=== PATIENT | male | born 1985 | race Two or more races ===

== ENCOUNTER 2025-03-28 12:46 | Emergency (ER) | payer BC, SELFPAY ==
[2025-03-28 13:24] VITALS: BP 146/88; PULSE 78; RESP 18; TEMP 36.6; O2SAT 97; BMI 34.9
--- NOTE | 2025-03-28 13:36 | EDRME_ITS ---
Rapid Medical Screening Exam E Arrival date/time: 03/28/25 12:46 This is a 39-year-old female that comes in with complaints of shortness of breath. Patient states that a couple days ago this started. Patient states that his left arm also started feeling weird per patient. 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 Patient currently on antibiotics for his vertigo and also on allergy medication. Patient states that his dizziness has been worse recently. Patient denies history of anxiety I have greeted and performed a focused initial assessment of this patient. Initial appropriate labs ordered at this time. A comprehensive ED assessment and evaluation of the patient and analysis of all test and completion of medical decision making process will be conducted by additional ED provider. Chief Complaint: Shortness of Breath/Dyspnea Time Seen by Provider: 03/28/25 13:13 Vital signs: Vital Signs Temperature 97.8 F 03/28/25 13:24 Pulse Rate 78 03/28/25 13:24 Respiratory Rate 18 03/28/25 13:24 Blood Pressure 146/88 H 03/28/25 13:24 Pulse Oximetry (%) 97 03/28/25 13:24 Oxygen Delivery Method Room Air 03/28/25 13:24
--- NOTE | 2025-03-28 13:38 | XR_ITS ---
Examination: PA lateral chest 2 views TECHNIQUE: Upright PA lateral chest 2 views Exam date and time: March 28, 2025 1450 hours INDICATIONS: Chest pain radiating to left arm beginning 2 days ago. FINDINGS: Normal heart size Lungs are clear. The osseous structures are intact IMPRESSION: No active disease
--- NOTE | 2025-03-28 13:39 | EKG_ITS ---
[facility] Test Date: 2025-03-28 Pat Name: HARDEEP MARCUS Department: Room: - Gender: Male Finish [employer]: : 1985 Requested By: Mindi Brewer Order Number: [id number] Reading MD: Mindi Brewer Measurements Intervals [place] Rate: 58 P: 21 ME: 132 QRS: -4 QRSD: 104 T: 11 QT: 374 QTc: 370 Interpretive Statements SINUS BRADYCARDIA Compared to ECG 07/05/2022 17:02:47 Sinus rhythm no longer present /store/S0/[id number].pdf
[2025-03-28 14:12] LABS: Basophils % (Auto) 1 % (0-2.5); Eosinophils # (Auto) 0.2 Thou/mm3 (0.0-0.5); Eosinophils % (Auto) 3 % (0-10); Hematocrit 42.5 % (41.0-53.0); Hemoglobin 15.2 g/dL (13.5-16.0); Immature Granulocytes % (Auto) 0 % (0-0); Immature Granulocytes Auto 0.03 Thou/mm3 (0.00-0.00); Lymphocytes % (Auto) 40 % (10-50); Mean Corpuscular HGB Conc 35.8 g/dl (31.0-37.0); Mean Corpuscular Hemoglobin 28.3 pg (25.0-35.0); Mean Corpuscular Volume 79 fL (80-100); Monocytes # (Auto) 0.4 Thou/mm3 (0.0-0.8); Monocytes % (Auto) 5 % (0-12); Neutrophils # (Auto) 3.8 Thou/mm3 (1.8-7.7); Neutrophils % (Auto) 51 % (37-80); Nucleated Red Blood Cell % 0 /100 WBC (0); Platelet Count 242 Thou/mm3 (140-440); RDW Standard Deviation 36.6 fL (35.1-43.9); Red Blood Count 5.37 Miln/mm3 (4.50-5.90); White Blood Count 7.5 Thou/mm3 (3.8-10.6)
[2025-03-28 14:32] LABS: B-Type Natriuretic Peptide 72 pg/mL (0-100)
[2025-03-28 14:33] LABS: Alanine Aminotransferase 25 U/L (10-49); Albumin, Serum 4.5 gm/dL (3.5-5.0); Albumin/Globulin Ratio 1.8 (1.2-2.2); Alkaline Phosphatase 56 U/L (46-116); Anion Gap 8 (7-16); Aspartate Amino Transferase 20 U/L (0-34); BUN/Creatinine Ratio 12 Ratio (12-20); Bilirubin,Total 0.5 mg/dL (0.3-1.2); Blood Urea Nitrogen 11 mg/dL (9-23); Calcium 9.3 mg/dL (8.3-10.6); Calcium (Corrected) 9.3 mg/dL (8.5-10.1); Carbon Dioxide 25.1 mMol/L (20.0-31.0); Chloride 105 mMol/L (98-107); Creatinine (Component) 0.9 mg/dL (0.6-1.3); Estimated Creatinine Clearance 116.9 mL/min (>60); Globulin 2.5 gm/dL (2.3-3.5); Glucose 101 mg/dL (74-106); Osmolality,Calculated 275 (275-295); Potassium 4.1 mMol/L (3.4-5.1); Sodium 138 mMol/L (136-145); Troponin I < 0.002 ng/mL (0.0-0.045); eGFR > 60 See Note
--- NOTE | 2025-03-28 15:34 | PC.NURSE ---
PT CAME TO TRIAGE DESK TO SAY HE WAS LEAVING. STATED IT'S TAKING TOO LONG. I'LL LOOK UP THE RESULTS ON LINE (POINT TO PT PORTAL INFORMATION BOOKLET). SIGNED AMA FORM
== END 2025-03-28 15:34 | disposition left against medical advice (07) ==
LOC: SERX 15:14
PROVIDERS: Nurse Practitioner Family; Emergency Provider Emergency Medicine; PCP Internal Medicine
DX: R06.02 Shortness of breath (principal); Z53.29 Procedure and treatment not carried out because of patient's decision for other reasons; R42 Dizziness and giddiness
CPT/HCPCS: 36415; 71046; 80053; 83880; 84484; 85025; 93005; 99283